=== PATIENT | female | born 1980 | race Caucasian/White ===

== ENCOUNTER → 2020-03-19 | Outpatient (CLI) | payer BC, OTHER ==
[~2020-03-19] MED LIST: DOC-Q-LACE100 MG PO
== END ==
LOC: KOH-I 08:54
DX: M79.671 Pain in right foot (principal)
CPT/HCPCS: 73630

== ENCOUNTER → 2020-03-29 | Outpatient (CLI) | payer BC, OTHER | LOC: EMI 15:30 | DX: S92.255 Nondisplaced fracture of navicular [scaphoid] of left foot (principal) | CPT/HCPCS: 73718 ==